=== PATIENT | male | born 1965 | race Caucasian/White ===

== ENCOUNTER → 2016-12-05 | Outpatient (CLI) | payer MEDICARE ==
[~2016-12-05] MED LIST: ALPR0.5T PO; BUPIVACAINE MPF 0.5% 10 ML VIAL for KCIC. SQ ONE; HYDR-2762 PO; IOHEXOL 300 MG/ML 50 ML VIAL. INT ART ONE; LIDOCAINE 1% Multi-Dose 20 ML VIAL. ID ONE; PREG50CA PO; methylPREDNISolone ACETATE 40 MG/ML VIAL. INT ART ONE
--- NOTE | 2016-12-05 12:01 | KCIC ---
Therapeutic left hip injection using fluoroscopic guidance: Indication: Left hip pain. Primary degenerative osteoarthritis of the left hip joint. Technique: The procedure was explained to the patient as were potential risks such as bleeding and infection and allergic reaction.. All questions were answered. Informed written consent was obtained. A timeout was performed which confirmed the name of the patient and date of and the type of the procedure and the side of the procedure. Allergies to medications were reviewed which did not include any medications utilized today.. The left hip was prepped and draped in the usual sterile manner. Following administration of 3 cc of 1% lidocaine for local anesthetic, a 22-gauge spinal needle was advanced into the left hip joint from an anterior approach without difficulty, with care taken to avoid the vascular structures. Stylet was removed and following negative aspiration, a mixture of 5 cc of Omnipaque-300, 2 cc (80 mg) Depo-Medrol and 4 cc of 0.5% Marcaine and 4 cc of 1% lidocaine was injected without difficulty. Fluoroscopy demonstrates uniform and satisfactory distribution of the injection throughout the left hip joint. 2 fluoroscopic spot images were performed. The needle was removed. There was good hemostasis at the injection site. The patient left in stable condition without immediate complication. The patient was given postprocedural instructions and instructed to contact us or the emergency room if there are any complications. Total fluoroscopic time: 32 seconds. Total fluoroscopic spot images: 2. Impression: Uncomplicated therapeutic left hip injection. Follow-up with the patient's physician. Electronically signed by: Doyle Escobar MD (12/05/2016 11:58 AM) [id number]
== END | disposition home or self-care (01) ==
LOC: KCIC 09:56
PROVIDERS: ATTEND Orthopaedic Surgery Sports Medicine
DX: M16.12 Unilateral primary osteoarthritis, left hip (principal); G89.29 Other chronic pain
CPT/HCPCS: 20610; 77002; J1030; Q9967

== ENCOUNTER → 2019-03-28 | Outpatient (CLI) | payer MEDICARE ==
[~2019-03-28] MED LIST changes: -BUPIVACAINE MPF 0.5% 10 ML VIAL for KCIC. SQ ONE; +CONTRAST GIVEN. MC PRN; -HYDR-2762 PO; +HYDR-2765 PO; +IOHEXOL 300 MG/ML 100ML VIAL. IV ONE; -IOHEXOL 300 MG/ML 50 ML VIAL. INT ART ONE; -LIDOCAINE 1% Multi-Dose 20 ML VIAL. ID ONE; -methylPREDNISolone ACETATE 40 MG/ML VIAL. INT ART ONE
--- NOTE | 2019-03-28 13:27 | KCIC ---
CT of the abdomen with contrast dated 03/28/2019. No comparison available. CLINICAL INDICATION: Hypoglycemia. Evaluate for insulinoma. TECHNIQUE: Contiguous axial imaging the abdomen performed after the administration of 100 cc Omnipaque 300. Images were acquired in the arterial and portal venous phases. One or more of the following individualized dose reduction techniques were utilized for this examination: 1. Automated exposure control 2. Adjustment of the mA and/or kV according to patient size 3. Use of iterative reconstruction technique. FINDINGS: Metallic susceptibility artifact at the GE junction, likely related to recent esophageal surgery. There is mild wall thickening of the distal thoracic esophagus. No paraesophageal fluid collection. Postsurgical changes of the stomach. Heart size is within normal limits. No pleural or pericardial effusion. There is a small nonenhancing low-density focus in the right lobe liver inferiorly laterally measures about 1.2 cm, likely cyst. The liver is otherwise homogeneous. No abnormal arterial hyperenhancement. Gallbladder unremarkable. Biliary tree normal in caliber. The spleen is mildly enlarged. Adrenal glands and kidneys are unremarkable. No hydronephrosis. The pancreas is homogeneous in attenuation. No abnormal arterial hyperenhancement or hypoenhancement on the venous phase. No inflammatory changes surrounding the gland. No ductal dilatation or calcification. Unopacified GI tract normal in caliber and contour. No focal bowel wall thickening. No inflammatory stranding in the mesentery. No adenopathy or ascites. Bone windows show no acute findings. IMPRESSION: 1. No apparent abnormality of the pancreas. No evidence of mass or abnormal hyperenhancement. 2. Postsurgical changes of the stomach with metallic ring device at the distal esophagus. No apparent complication. 3. There is mild diffuse wall thickening of the distal thoracic esophagus that suggests chronic esophagitis. Electronically signed by: Pa Dominique MD (03/28/2019 1:24 PM) [id number]
== END | disposition home or self-care (01) ==
LOC: KCIC CT 11:46
PROVIDERS: ATTEND Family Medicine
DX: K22.2 Esophageal obstruction (principal); R16.1 Splenomegaly, not elsewhere classified
CPT/HCPCS: 74160; Q9967

== ENCOUNTER → 2020-05-15 | Outpatient (CLI) | payer MEDICARE ==
[~2020-05-15] MED LIST changes: -CONTRAST GIVEN. MC PRN; -IOHEXOL 300 MG/ML 100ML VIAL. IV ONE; -PREG50CA PO; +PREG50CA91 PO
--- NOTE | 2020-05-15 10:48 | RAD ---
Bilateral lower extremity arterial duplex ultrasound study without comparison for faintly palpable do rsalis pedis pulses bilaterally. Technique and findings: Real-time grayscale and color and spectral Doppler evaluation of the arteries of lower extremities is performed. All vessels are patent, with triphasic flow throughout the vessel s bilaterally save for the right dorsalis pedis artery which is biphasic. No focal velocity elevation s to suggest hemodynamically significant stenosis are identified in any distribution. IMPRESSION: 1. No sonographic evidence of hemodynamically significant atherosclerosis. Electronically signed by: Raudel Newton MD (05/15/2020 10:45 AM) [id number]
== END ==
LOC: US 06:53
PROVIDERS: ATTEND Podiatrist
DX: R09.89 Other specified symptoms and signs involving the circulatory and respiratory systems (principal)
CPT/HCPCS: 93925